=== PATIENT | female | born 1985 | race Caucasian/White ===

== ENCOUNTER 2019-06-09 15:01 | Inpatient (IN) | payer MEDICAID, OTHER ==
[~2019-06-09] VITALS: Ht 157.5 cm; Wt 100.4 kg
[2019-06-09] MEDS ORDERED: ONDANSETRON 2MG/ML, 2ML IVPush ONE ×2 (15:30→17:00)
[2019-06-09] MEDS ORDERED: SODIUM CHLORIDE FLUSH 10ML SYR IVF ONE (15:30)
[2019-06-09] MEDS ORDERED: SODIUM CHLORIDE 0.9% 1,000ML IVBOLUS ONE (15:30)
[2019-06-09] MEDS ORDERED: HYDROmorphone 1 MG/ML, 1ML INJ ONE ×3 (15:41→17:08)
[2019-06-09] MEDS ORDERED: ONDANSETRON 2MG/ML, 2ML ONE ×2 (15:41→17:05)
[2019-06-09] MEDS: HYDROmorphone 2 MG/ML, 1ML IVPush PRN ×2 (15:42→17:14)
[2019-06-09 15:48] LABS: BASOPHILS # (AUTO) 0.04 x10^3/uL (0-0.1); BASOPHILS % (AUTO) 1 % (0-1); EOSINOPHILS # (AUTO) 0.13 x10^3/uL (0-0.4); EOSINOPHILS % (AUTO) 2 % (1-7); LYMPHOCYTES # (AUTO) 2.53 x10^3/uL (1-3.4); LYMPHOCYTES % (AUTO) 33 % (22-44); MD NO; MEAN CORPUSCULAR HEMOGLOBIN 31.1 pg (27.0-34.8); MEAN CORPUSCULAR HGB CONC 33.2 g/dL (32.4-35.8); MEAN CORPUSCULAR VOLUME 93.7 fL (80-100); MEAN PLATELET VOLUME 9.4 fL (7.4-10.4); MONOCYTES # (AUTO) 0.38 x10^3/uL (0.2-0.8); MONOCYTES % (AUTO) 5 % (2-9); NEUTROPHILS % (AUTO) 59 % (42-75); PLATELET COUNT 179 x10^3/uL (130-400); RED BLOOD COUNT 5.19 x10^6/uL (3.82-5.3)
[2019-06-09 16:00] LABS: ALANINE AMINOTRANSFERASE 22 U/L (12-78); ANION GAP 5 mmol/L (5-15); CALCIUM 8.8 mg/dL (8.5-10.1); CHLORIDE 109 mmol/L (98-107); CREATININE 0.78 mg/dL (0.55-1.02)
[2019-06-09 16:04] LABS: ALKALINE PHOSPHATASE 29 U/L (45-117); BILIRUBIN,TOTAL 0.5 mg/dL (0.2-1.0); TOTAL PROTEIN 7.3 g/dL (6.4-8.2)
--- NOTE | 2019-06-09 16:07 | NUR ---
PT DRY HEAVING. MEDICATED FOR SAME AND FOR ADBOMINAL PAIN WITH FLUIDS INFUSING NOTED ON MAR
--- NOTE | 2019-06-09 16:20 | NUR ---
PAIN IMPROVED SINCE MEDICATED. MD AT BEDSIDE DISCUSSING LABS AND INTENTION TO ADMIT
[2019-06-09] MEDS ORDERED: PREG150C PO (16:23)
--- NOTE | 2019-06-09 16:33 | NUR ---
TO CT VIA [facility]
[2019-06-09] MEDS ORDERED: OMNIPAQUE 350 MG/ML, 100ML BOTTLE ONE (16:46)
[2019-06-09 16:57] LABS: MICROSCOPIC NOT IND
[2019-06-09 17:03] LABS: CULTURE INDICATED? NO
--- NOTE | 2019-06-09 17:15 | NUR ---
MEDICATED FOR RETURNING ABDOMINAL PAIN AND NAUSEA NOTED ON MAR
[2019-06-09 17:34] LABS: CHOL/HDL RATIO 3.6; LDL/HDL RATIO 1.9 (0.5-3.0)
[2019-06-09] MEDS ORDERED: DOCUSATE 100 MG CAPSULE PO PRN (18:00)
[2019-06-09] MEDS ORDERED: POLYETHYLENE GLYCOL 17 GM PACKET PO PRN (18:00)
[2019-06-09] MEDS ORDERED: ONDANSETRON ODT 4 MG PO PRN (18:00)
[2019-06-09] MEDS ORDERED: ACETAMINOPHEN 325 MG TABLET PO PRN (18:00)
[2019-06-09] MEDS ORDERED: NICOTINE 14MG/24 HR PATCH.TD24 TD ONE (18:00)
--- NOTE | 2019-06-09 18:25 | NUR ---
REPORT TO TRAY ACOSTA. PT TO BE TRANSPORTED TO FLOOR
[2019-06-09 18:48] VITALS: BP 113/76
[2019-06-09] MEDS: ONDANSETRON 2MG/ML, 2ML IVPush PRN (19:42)
[2019-06-09] MEDS: morphine SULFATE 10 MG/ML, 1ML IVPush PRN ×2 (19:43→23:25)
[2019-06-09] MEDS: LACTATED RINGERS 1,000 ML IV SCH (19:45)
[2019-06-10 00:41] LABS: AMPHETAMINE SCREEN, URINE Negative (Negative); BARBITURATE SCREEN, URINE Negative (Negative); BENZODIAZEPINE SCREEN, URINE Positive (Negative); CANNABINOID SCREEN, URINE Positive (Negative); COCAINE SCREEN, URINE Negative (Negative); METHADONE SCREEN, URINE Negative (Negative); OPIATE SCREEN, URINE Positive (Negative)
[2019-06-10 00:54] VITALS: BP 120/83
[2019-06-10] MEDS: LACTATED RINGERS 1,000 ML IV SCH ×3 (03:03→21:18)
[2019-06-10] MEDS: ONDANSETRON 2MG/ML, 2ML IVPush PRN ×2 (03:12→11:14)
[2019-06-10] MEDS: morphine SULFATE 10 MG/ML, 1ML IVPush PRN ×6 (03:12→23:53)
[2019-06-10 06:03] LABS: BASOPHILS # (AUTO) 0.02 x10^3/uL (0-0.1); BASOPHILS % (AUTO) 0 % (0-1); EOSINOPHILS # (AUTO) 0.16 x10^3/uL (0-0.4); EOSINOPHILS % (AUTO) 3 % (1-7); LYMPHOCYTES # (AUTO) 2.09 x10^3/uL (1-3.4); LYMPHOCYTES % (AUTO) 41 % (22-44); MD NO; MEAN CORPUSCULAR HEMOGLOBIN 31.3 pg (27.0-34.8); MEAN CORPUSCULAR HGB CONC 33.5 g/dL (32.4-35.8); MEAN CORPUSCULAR VOLUME 93.4 fL (80-100); MEAN PLATELET VOLUME 9.6 fL (7.4-10.4); MONOCYTES # (AUTO) 0.35 x10^3/uL (0.2-0.8); MONOCYTES % (AUTO) 7 % (2-9); NEUTROPHILS # (AUTO) 2.43 x10^3/uL (1.8-6.8); NEUTROPHILS % (AUTO) 48 % (42-75); PLATELET COUNT 125 x10^3/uL (130-400); RED CELL DISTRIBUTION WIDTH 12.8 % (9.6-15.2)
[2019-06-10 06:21] LABS: CHLORIDE 115 mmol/L (98-107)
[2019-06-10 06:30] LABS: ALANINE AMINOTRANSFERASE 16 U/L (12-78); ALBUMIN 3.2 g/dL (3.4-5.0); ALKALINE PHOSPHATASE 21 U/L (45-117); ANION GAP 5 mmol/L (5-15); BILIRUBIN,TOTAL 0.5 mg/dL (0.2-1.0); CALCIUM 8.2 mg/dL (8.5-10.1); TOTAL PROTEIN 5.7 g/dL (6.4-8.2)
[2019-06-10 06:54] VITALS: BP 111/77
[2019-06-10 13:18] VITALS: BP 105/72
[2019-06-10 21:23] VITALS: BP 96/63
[2019-06-11 01:52] VITALS: BP 100/66
[2019-06-11] MEDS: morphine SULFATE 10 MG/ML, 1ML IVPush PRN ×3 (03:24→10:37)
[2019-06-11] MEDS: LACTATED RINGERS 1,000 ML IV SCH ×2 (05:06→14:08)
[2019-06-11 05:39] LABS: BASOPHILS # (AUTO) 0.01 x10^3/uL (0-0.1); BASOPHILS % (AUTO) 0 % (0-1); EOSINOPHILS # (AUTO) 0.16 x10^3/uL (0-0.4); EOSINOPHILS % (AUTO) 3 % (1-7); LYMPHOCYTES # (AUTO) 1.96 x10^3/uL (1-3.4); LYMPHOCYTES % (AUTO) 36 % (22-44); MD NO; MEAN CORPUSCULAR HEMOGLOBIN 30.8 pg (27.0-34.8); MEAN CORPUSCULAR VOLUME 93.4 fL (80-100); MEAN PLATELET VOLUME 9.7 fL (7.4-10.4); MONOCYTES # (AUTO) 0.31 x10^3/uL (0.2-0.8); MONOCYTES % (AUTO) 6 % (2-9); NEUTROPHILS # (AUTO) 3.07 x10^3/uL (1.8-6.8); NEUTROPHILS % (AUTO) 56 % (42-75); PLATELET COUNT 135 x10^3/uL (130-400); RED BLOOD COUNT 4.64 x10^6/uL (3.82-5.3); RED CELL DISTRIBUTION WIDTH 12.5 % (9.6-15.2)
[2019-06-11 05:59] LABS: ALBUMIN 3.3 g/dL (3.4-5.0); ANION GAP 5 mmol/L (5-15); CALCIUM 8.6 mg/dL (8.5-10.1); CHLORIDE 112 mmol/L (98-107)
[2019-06-11 06:02] LABS: ALANINE AMINOTRANSFERASE 15 U/L (12-78); ALKALINE PHOSPHATASE 20 U/L (45-117); BILIRUBIN,TOTAL 0.9 mg/dL (0.2-1.0); CREATININE 0.61 mg/dL (0.55-1.02); TOTAL PROTEIN 6.2 g/dL (6.4-8.2)
[2019-06-11 07:21] VITALS: BP 100/66
[2019-06-11 12:47] VITALS: BP 106/75
[2019-06-11 20:09] VITALS: BP_SYST 100; BP_SYST 118; BP_DIAS 64; BP_DIAS 67
[2019-06-12] MEDS: LACTATED RINGERS 1,000 ML IV SCH ×2 (00:30→09:13)
[2019-06-12 01:18] VITALS: BP 96/57
[2019-06-12 05:55] LABS: BASOPHILS # (AUTO) 0.02 x10^3/uL (0-0.1); BASOPHILS % (AUTO) 1 % (0-1); EOSINOPHILS # (AUTO) 0.13 x10^3/uL (0-0.4); EOSINOPHILS % (AUTO) 3 % (1-7); LYMPHOCYTES # (AUTO) 1.69 x10^3/uL (1-3.4); LYMPHOCYTES % (AUTO) 32 % (22-44); MD NO; MEAN CORPUSCULAR HEMOGLOBIN 31.7 pg (27.0-34.8); MEAN CORPUSCULAR HGB CONC 34.3 g/dL (32.4-35.8); MEAN CORPUSCULAR VOLUME 92.4 fL (80-100); MEAN PLATELET VOLUME 9.8 fL (7.4-10.4); MONOCYTES # (AUTO) 0.44 x10^3/uL (0.2-0.8); MONOCYTES % (AUTO) 8 % (2-9); NEUTROPHILS # (AUTO) 2.98 x10^3/uL (1.8-6.8); NEUTROPHILS % (AUTO) 57 % (42-75); PLATELET COUNT 136 x10^3/uL (130-400); RED BLOOD COUNT 4.65 x10^6/uL (3.82-5.3); RED CELL DISTRIBUTION WIDTH 12.6 % (9.6-15.2)
[2019-06-12 06:06] LABS: ALBUMIN 3.1 g/dL (3.4-5.0); ANION GAP 6 mmol/L (5-15); CALCIUM 8.4 mg/dL (8.5-10.1); CHLORIDE 114 mmol/L (98-107)
[2019-06-12 06:09] LABS: ALANINE AMINOTRANSFERASE 29 U/L (12-78); ALKALINE PHOSPHATASE 21 U/L (45-117); BILIRUBIN,TOTAL 0.9 mg/dL (0.2-1.0); CREATININE 0.61 mg/dL (0.55-1.02); TOTAL PROTEIN 5.7 g/dL (6.4-8.2)
[2019-06-12 07:21] VITALS: BP 103/63
[2019-06-12 13:56] VITALS: BP 129/85
== END 2019-06-12 14:15 | disposition home or self-care (01) | DRG 439 ==
LOC: ED 17:27 → EDIP 18:06 → 4NE 18:47 → DCLOUNGE 06-12 14:00
PROVIDERS: ADMIT Hospitalist; ATTEND Family Medicine
DX: K85.30 Drug induced acute pancreatitis without necrosis or infection (principal); Z68.41 Body mass index [BMI] 40.0-44.9, adult; E66.9 Obesity, unspecified; K59.00 Constipation, unspecified; K80.20 Calculus of gallbladder without cholecystitis without obstruction; M54.12 Radiculopathy, cervical region; Z72.0 Tobacco use; Z82.49 Family history of ischemic heart disease and other diseases of the circulatory system; Z83.3 Family history of diabetes mellitus; Z85.41 Personal history of malignant neoplasm of cervix uteri
CPT/HCPCS: 36415; 74177; 80053; 80061; 80307; 81003; 83690; 84703; 85025; 96361; 96374; 96376; G0378; J1170; J2405; Q9967; J2270; J7030; J7120

== ENCOUNTER 2019-08-02 06:48 | Day surgery (SDC) | payer OTHER ==
[~2019-08-02] VITALS: Ht 157.5 cm; Wt 102.2 kg
[~2019-08-02 06:48] MED LIST: NORT10CA PO; PREG150C PO
[2019-08-02] MEDS ORDERED: BUPIVACAINE/PF-EPI 0.5% 1:200K ONE (06:56)
[2019-08-02] MEDS ORDERED: INDOCYANINE GREEN 25 MG VIAL ONE (07:19)
[2019-08-02] MEDS ORDERED: LACTATED RINGERS 1,000 ML IV SCH (07:21)
[2019-08-02] MEDS ORDERED: INDOCYANINE GREEN 25 MG VIAL IV ONE (07:30)
[2019-08-02 07:54] LABS: HCG UR SG 1.008 (1.003-1.030)
[2019-08-02] MEDS ORDERED: MIDAZOLAM 1 MG/ML, 2ML ONE (08:06)
[2019-08-02] MEDS ORDERED: FENTANYL PF 250 MCG/5ML ONE (08:07)
[2019-08-02] MEDS ORDERED: SCOPOLAMINE 1MG PATCH TD ONE (08:32)
[2019-08-02] MEDS ORDERED: ONDANSETRON 2MG/ML, 2ML IV PRN (09:00)
[2019-08-02] MEDS ORDERED: HYDROmorphone 1 MG/ML, 1ML INJ IVPush PRN (09:00)
[2019-08-02] MEDS ORDERED: ACETAMINOPHEN 325 MG TABLET PO PRN (09:00)
[2019-08-02] MEDS ORDERED: PROMETHAZINE 25 MG SUPP PR PRN (09:00)
[2019-08-02] MEDS ORDERED: ONDANSETRON ODT 8 MG PO PRN (09:00)
[2019-08-02] MEDS ORDERED: PROMETHAZINE 25 MG/ML, 1ML IV PRN (09:00)
[2019-08-02] MEDS ORDERED: GLYCOPYRROLATE 0.2MG/1ML, 5ML ONE (09:17)
[2019-08-02] MEDS ORDERED: ROCURONIUM 10MG/ML,5ML ONE (09:17)
[2019-08-02] MEDS ORDERED: ONDANSETRON 2MG/ML, 2ML ONE (09:17)
[2019-08-02] MEDS ORDERED: DEXAMETHASONE 4 MG/ML, 1ML ONE (09:17)
[2019-08-02] MEDS ORDERED: PROPOFOL 10 MG/ML, 20ML ONE (09:17)
[2019-08-02] MEDS ORDERED: SUCCINYLCHOLINE 20 MG/ML, 10ML ONE (09:17)
[2019-08-02] MEDS ORDERED: ALBUTEROL HFA 90 MCG/SPRAY ONE (09:17)
[2019-08-02] MEDS ORDERED: NEOSTIGMINE 1 MG/ML, 10ML ONE (09:17)
[2019-08-02] MEDS ORDERED: CEFAZOLIN 1,000 MG ONE (09:17)
[2019-08-02] MEDS ORDERED: SUGAMMADEX 200 MG/2 ML IVPush ONE (10:02)
[2019-08-02] MEDS ORDERED: ACETAMINOPHEN 650 MG/20.3 ML UDC ONE (10:16)
[2019-08-02] MEDS ORDERED: FENTANYL PF 100 MCG/2ML ONE (10:17)
[2019-08-02] MEDS ORDERED: OXYcodone 5 MG/5 ML ORAL.SOL UDC ONE ×2 (10:17→11:25)
[2019-08-02] MEDS ORDERED: MEPERIDINE/PF 25MG/ML,1ML ONE (10:17)
[2019-08-02] MEDS: FENTANYL PF 100 MCG/2ML IV PRN ×4 (10:24→11:17)
[2019-08-02] MEDS ORDERED: LORazepam 2 MG/ML, 1ML ONE (10:26)
[2019-08-02] MEDS: OXYcodone 5 MG/5 ML ORAL.SOL UDC PO PRN ×2 (10:28→11:26)
[2019-08-02] MEDS ORDERED: LORazepam 2 MG/ML, 1ML IVPush PRN (11:30)
[2019-08-02] MEDS ORDERED: MEPERIDINE/PF 25MG/0.5ML IVPush PRN (11:30)
== END 2019-08-02 13:30 | disposition home or self-care (01) ==
LOC: OUT 06:48
PROVIDERS: ATTEND Surgery
DX: K80.10 Calculus of gallbladder with chronic cholecystitis without obstruction (principal); F12.90 Cannabis use, unspecified, uncomplicated; F17.210 Nicotine dependence, cigarettes, uncomplicated; E66.9 Obesity, unspecified; Z68.41 Body mass index [BMI] 40.0-44.9, adult; Z79.899 Other long term (current) drug therapy; Z88.0 Allergy status to penicillin
CPT/HCPCS: 47562; 81025; 88304; J0690; J1100; J2175; J2250; J2405; J2704; J3010; J7120; J2710; J0330

== ENCOUNTER 2019-09-29 11:13 | Emergency (ER) | payer OTHER ==
[~2019-09-29] VITALS: Ht 157.5 cm; Wt 108.2 kg
[2019-09-29 11:34] VITALS: BP 130/90
[2019-09-29] MEDS ORDERED: OXYcodone/APAP 5/325MG TABLET ONE (12:19)
[2019-09-29] MEDS ORDERED: DEXAMETHASONE 4 MG TABLET ONE (12:19)
[2019-09-29] MEDS ORDERED: OXYcodone/APAP 5/325MG TABLET PO ONE (12:30)
[2019-09-29] MEDS ORDERED: DEXAMETHASONE 4 MG TABLET PO ONE (12:30)
--- NOTE | 2019-09-29 12:34 | NUR ---
MEDS PER MAR. TO CT.
== END 2019-09-29 14:02 | disposition home or self-care (01) ==
LOC: ED 12:16
DX: S16.1XXA Strain of muscle, fascia and tendon at neck level, initial encounter (principal); F17.210 Nicotine dependence, cigarettes, uncomplicated; X58.XXXA Exposure to other specified factors, initial encounter; Y93.89 Activity, other specified; Y92.89 Other specified places as the place of occurrence of the external cause; Y99.8 Other external cause status
CPT/HCPCS: 72125; 99284

== ENCOUNTER 2020-03-27 15:00 | Emergency (ER) | payer OTHER ==
[~2020-03-27] VITALS: Ht 172.7 cm; Wt 84.1 kg
[2020-03-27 15:10] VITALS: BP 121/55
--- NOTE | 2020-03-27 15:14 | NUR ---
BIB EMS FOR C/O SZ ACTIVITY. LAST DRINK 2 HRS AGO HAD 1 [place] [place]. PT WAS ALSO MAKING STATEMENTS TO SIGNIFICANT OTHER ABOUT WANTING TO HURT HERSELF. PT PLACED ON LEGAL HOLD BY [employer] SUPERVISOR'S OFFICE AND BROUGHT TO ED. PT CURRENTLY DENIES SI/ HI TO THIS RN AND ERP DR. LEDBETTER/ PT EDUCATED ON POC FOR PT TO BECOME SOBER THEN PSYCH EVAL. PT AWARE AND AGREEABLE AT THIS TIME AFTER YELLING AND SCREAMING TO OTHER STAFF MEMBERS UPON ARRIVAL.
--- NOTE | 2020-03-27 15:19 | NUR ---
PT RIPPING OFF MONITORS AND STATES "I DON'T WANT THIS SHIT ON ME". PT EDUCATED ON PURPOSE OF MONITORS. PT CONTINUES TO REFUSE. SZ PADS REMAIN IN PLACE ON [facility].
--- NOTE | 2020-03-27 15:19 | NUR ---
REPORT GIVEN TO KARLA FORTE.
[2020-03-27] MEDS ORDERED: LORazepam 1MG TABLET ONE (15:24)
[2020-03-27] MEDS ORDERED: LORazepam 1MG TABLET PO ONE (15:30)
--- NOTE | 2020-03-27 15:30 | NUR ---
PT ELOPED W IV. [facility] NOTIFIED.
== END 2020-03-27 15:32 ==
LOC: ED 15:26
DX: F10.229 Alcohol dependence with intoxication, unspecified (principal); Y90.9 Presence of alcohol in blood, level not specified
CPT/HCPCS: 99283